=== PATIENT | female | born 1985 | race American Indian/Alaskan Native ===

== ENCOUNTER 2017-11-02 11:52 | Emergency (ER) | payer MEDICAID ==
[2017-11-02] MEDS ORDERED: ZOFRAN IV ONE (12:29)
[2017-11-02] MEDS ORDERED: NACL 0.9% 1000 ML 1,000 ML IV ONE (12:29)
[2017-11-02] MEDS ORDERED: MORPHINE IV ONE (12:29)
--- NOTE | 2017-11-02 12:33 | Emergency Department Report ---
ED Abdominal Pain HPI - General Chief Complaint: Abdominal Pain Stated Complaint: ABD PAIN/BACK PAIN Time Seen by Provider: 11/02/17 12:25 Source: patient Mode of arrival: Ambulatory Limitations: No Limitations - History of Present Illness Initial Comments: Patient is 31 years old female brought by EMS for evaluation ONSET OF RIGHT FLANK PAIN THAT RADIATED DOWN TO HER GROIN. PATIENT STATED THAT PAIN STARTED AROUND 2:00 THIS MORNING ASSOCIATED WITH NAUSEA AND VOMITING. Patient denied any fever. She stated that she's been having painful urination also for the last 2-3 days. MD Complaint: flank pain -: Sudden Location: R flank Radiation: none Migration to: no migration Severity: moderate Quality: sharp Consistency: constant Associated Symptoms: nausea, vomiting, diarrhea. denies: constipation, dysuria , hematemesis, hematochezia, melena, hematuria, anorexia - Related Data Allergies Allergy/AdvReac Type Severity Reaction Status Date / Time meperidine [From Demerol] Allergy Swelling Verified 11/02/17 12:13 tomato Allergy Swelling Verified 11/02/17 12:13 ED Review of Systems ROS: Stated complaint: ABD PAIN/BACK PAIN Other details as noted in HPI Comment: All other systems reviewed and negative Constitutional: denies: chills, fever Respiratory: denies: orthopnea, shortness of breath, SOB with exertion, SOB at rest Cardiovascular: denies: chest pain, palpitations Gastrointestinal: abdominal pain, nausea, vomiting. denies: diarrhea, constipation, hematemesis, melena, hematochezia Genitourinary: urgency, dysuria, frequency. 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 Absent: tenderness, meningismus, lymphadenopathy, thyromegaly - Respiratory Respiratory exam: Present: normal lung sounds bilaterally. Absent: respiratory distress, wheezes, rales, rhonchi, stridor, chest wall tenderness, accessory muscle use, decreased breath sounds, prolonged expiratory - Cardiovascular Cardiovascular Exam: Present: regular rate, normal rhythm, normal heart sounds - GI/Abdominal GI/Abdominal exam: Present: soft, normal bowel sounds. Absent: distended, tenderness, guarding, rebound, rigid, organomegaly, mass, bruit, pulsatile mass , hernia - Extremities Exam Extremities exam: Present: normal inspection, full ROM, normal capillary refill - Back Exam Back exam: Present: normal inspection, full ROM. Absent: tenderness, CVA tenderness (R), CVA tenderness (L), muscle spasm, paraspinal tenderness - Neurological Exam Neurological exam: Present: alert, oriented X3, CN II-XII intact, normal gait - Skin Skin exam: Present: warm, intact, normal color ED Course Vital Signs 11/02/17 11/02/17 11/02/17 12:14 12:38 12:48 Temperature 97.9 F 98.6 F Pulse Rate 75 69 Respiratory 20 18 18 Rate Blood Pressure 157/93 Blood Pressure 147/78 [Right] O2 Sat by Pulse 100 100 Oximetry ED Medical Decision Making - Lab Data Result diagrams: 11/02/17 12:36 11/02/17 12:42 - Radiology Data Radiology results: report reviewed Referring Physician: LILIANA MONROE Patient Name: MONICA MCDONALD Date of : 1985 Sex: Female Report Date: 2017-11-02 Report Status: Finalized Findings [facility] [address] [place] [address] Cat Scan Report Signed Patient: MONICA MCDONALD MR#: [id number] : 1985 Acct:[id number] Age/Sex: 31 / F ADM Date: 11/02/17 Loc: ED Attending Dr: Ordering Physician: LILIANA MONROE Date of Service: 11/02/17 Procedure(s): CT abdomen pelvis w con Accession Number(s): [id number] cc: LILIANA MONROE CT ABDOMEN PELVIS WITH CONTRAST: HISTORY: abdominal pain. COMPARISON: none. TECHNIQUE: Helical CT in 1.25mm intervals following IV contrast. Sagittal and coronal reconstructions. FINDINGS: Lung bases: Normal. Liver: Normal. Biliary system: Normal. Pancreas: Normal. Spleen: Normal. Kidneys/ureters/bladder: Both kidneys are normal size, contour and position. There appear to be 3 or 4 calyceal stones in the right kidney measuring up to 2 mm. Perhaps 1 calyceal stone in the mid left kidney measuring 2 mm. No hydronephrosis, cystic disease or mass. Normal ureters and bladder. Adrenal glands: Normal. Aorta: Normal. Intestines: Within normal limits given no oral contrast was administered. Appendix: Normal. Pelvic viscera: Normal. Ascites: None. Adenopathy: None. Musculoskeletal: Normal. IMPRESSION: Bilateral nephrolithiasis, nonobstructing. No acute inflammatory process is appreciated. Transcribed By: TTR Dictated By: ABDIRIZAK MASON JR, MD Electronically Authenticated By: ABDIRIZAK MASON JR, MD Signed Date/Time: 11/02/171457 DD/ 50 TD/TT: 11/02/171457 - Medical Decision Making Patient stated that she is feeling much better. Her pain is completely resolved. I informed her about her CT abdomen and pelvis and the need to follow -up with his urologist. I will give her Dr. Ross to follow-up with. Critical care attestation.: If time is entered above; I have spent that time in minutes in the direct care of this critically ill patient, excluding procedure time. ED Disposition Clinical Impression: Bilateral kidney stones, Abdominal pain Disposition: DC-01 TO HOME OR SELFCARE Is pt being admited?: No Condition: Stable Instructions: Abdominal Pain (ED), Kidney Stones (ED) Referrals: FRANSISCO ROSS MD [Staff Physician] - 3-5 Days
[2017-11-02 12:40] VITALS: BP 147/78
[2017-11-02 12:52] LABS: Bilirubin,Urine NEG (Negative); Blood,Urine NEG (Negative); Color,Urine Yellow (Yellow); Mucus,Urine FEW /HPF; Urobilinogen,Urine < 2.0 mg/dL (<2.0)
[2017-11-02 13:03] LABS: Basophils % (Auto) 0.2 % (0.0-1.8); Hematocrit 38.8 % (30.3-42.9); Hemoglobin 12.5 gm/dl (10.1-14.3); Lymphocytes # (Auto) 1.5 K/mm3 (1.2-5.4); Lymphocytes % (Auto) 9.2 % (13.4-35.0); Mean Corpuscular HGB Conc 32 % (30-34); Mean Corpuscular Hemoglobin 27 pg (28-32); Mean Corpuscular Volume 84 fl (79-97); Monocytes # (Auto) 0.6 K/mm3 (0.0-0.8); Monocytes % (Auto) 3.4 % (0.0-7.3); Platelet Count 331 K/mm3 (140-440); Red Blood Count 4.64 M/mm3 (3.65-5.03); Red Cell Distribution Width 14.4 % (13.2-15.2)
[2017-11-02 13:11] LABS: Alanine Aminotransferase 14 units/L (7-56); Albumin 4.1 g/dL (3.9-5); BUN/Creatinine Ratio 15; Blood Urea Nitrogen 9 mg/dL (7-17); Hemolysis Index 40
[2017-11-02] MEDS ORDERED: ROCEPHIN/NS 1 GM/50 ML 1 GM/50 ML BAG IV ONE (13:14)
[2017-11-02] MEDS ORDERED: REGLAN IV ONE (13:14)
[2017-11-02] MEDS ORDERED: REGLAN ONE (13:15)
[2017-11-02] MEDS ORDERED: SUBLIMAZE ONE (13:33)
[2017-11-02] MEDS ORDERED: cefTRIAXone 1 GM in NACL 0.9% 20 ML IV ONE (14:00)
--- NOTE | 2017-11-02 15:07 | Cat Scan Report ---
CT ABDOMEN PELVIS WITH CONTRAST: HISTORY: abdominal pain. COMPARISON: none. TECHNIQUE: Helical CT in 1.25mm intervals following IV contrast. Sagittal and coronal reconstructions. FINDINGS: Lung bases: Normal. Liver: Normal. Biliary system: Normal. Pancreas: Normal. Spleen: Normal. Kidneys/ureters/bladder: Both kidneys are normal size, contour and position. There appear to be 3 or 4 calyceal stones in the right kidney measuring up to 2 mm. Perhaps 1 calyceal stone in the mid left kidney measuring 2 mm. No hydronephrosis, cystic disease or mass. Normal ureters and bladder. Adrenal glands: Normal. Aorta: Normal. Intestines: Within normal limits given no oral contrast was administered. Appendix: Normal. Pelvic viscera: Normal. Ascites: None. Adenopathy: None. Musculoskeletal: Normal. IMPRESSION: Bilateral nephrolithiasis, nonobstructing. No acute inflammatory process is appreciated.
== END 2017-11-02 15:49 | disposition home or self-care (01) ==
LOC: ED 11:52
DX: N20.0 Calculus of kidney (principal); J45.909 Unspecified asthma, uncomplicated; F17.200 Nicotine dependence, unspecified, uncomplicated; Z91.018 Allergy to other foods; Z88.8 Allergy status to other drugs, medicaments and biological substances
CPT/HCPCS: 36415; 74177; 80053; 81001; 83690; 84703; 85025; 87040; 96361; 96374; 96375; 99284; J0696; J2270; J2405; J2765; J3010; J7030; Q9967

== ENCOUNTER 2018-08-18 05:43 | Emergency (ER) | payer MEDICAID ==
[2018-08-18] MEDS ORDERED: NACL 0.9% 1000 ML 1,000 ML IV ONE ×2 (05:50→08:52)
[2018-08-18] MEDS ORDERED: ZOFRAN IV ONE (05:59)
[2018-08-18] MEDS ORDERED: TORADOL IV ONE (06:09)
[2018-08-18 06:20] LABS: Hematocrit 39.6 % (30.3-42.9); Hemoglobin 12.5 gm/dl (10.1-14.3); Mean Corpuscular HGB Conc 32 % (30-34); Mean Corpuscular Volume 83 fl (79-97); Platelet Count 357 K/mm3 (140-440); Red Blood Count 4.78 M/mm3 (3.65-5.03); Red Cell Distribution Width 14.2 % (13.2-15.2)
--- NOTE | 2018-08-18 06:25 | Emergency Department Report ---
ED Abdominal Pain HPI - General Chief Complaint: Abdominal Pain Stated Complaint: ABD PAIN/EMESIS Time Seen by Provider: 08/18/18 06:19 Source: patient Mode of arrival: Stretcher Limitations: No Limitations - History of Present Illness Initial Comments: Patient is a 32-year-old female that presents emergency room with complaints of lower abdominal pain and flank pain. Patient states that her abdominal prior pain started suprapubic and radiates to her right flank. Patient states she has a history of kidney stones. Patient states this pain feels like another kidney stone. Patient also complaining of nausea and vomiting. Patient states nausea and vomiting is due to her pain and happens every time she has a kidney stone. Patient states the pain is a 10 out of 10. Patient describes the pain as a stabbing pain. Patient denies dysuria. Patient denies fever and chills. MD Complaint: abdominal pain -: Sudden Location: suprapubic Radiation: R flank Migration to: no migration Severity: severe Severity scale (0 -10): 9 Quality: stabbing Consistency: constant Improves With: rest Worsens With: movement Associated Symptoms: nausea, vomiting, dysuria. denies: diarrhea, fever, chills, constipation, hematemesis, hematochezia, melena, hematuria, anorexia, syncope Treatments Prior to Arrival: NSAIDs - Related Data LMP (females 10-50): last week Previous Rx's Medication Instructions Recorded Last Taken Type Ciprofloxacin HCl [Ciprofloxacin 500 mg PO Q12H 10 Days #20 tab 08/18/18 Unknown Rx TAB] Ondansetron [Zofran ODT TAB] 4 mg PO Q8HR PRN #14 tab.rapdis 08/18/18 Unknown Rx Tamsulosin [Flomax] 0.4 mg PO QDAY #14 cap 08/18/18 Unknown Rx oxyCODONE /ACETAMINOPHEN [Percocet 1 tab PO Q6HR PRN #10 tablet 08/18/18 Unknown Rx 5/325 mg] Allergies Allergy/AdvReac Type Severity Reaction Status Date / Time meperidine [From Demerol] Allergy Swelling Verified 11/02/17 12:13 tomato Allergy Swelling Verified 11/02/17 12:13 ED Review of Systems ROS: Stated complaint: ABD PAIN/EMESIS Other details as noted in HPI Constitutional: denies: chills, fever Eyes: denies: eye pain, eye discharge, vision change ENT: denies: ear pain, throat pain Respiratory: denies: cough, shortness of breath, wheezing Cardiovascular: denies: chest pain, palpitations Endocrine: no symptoms reported Gastrointestinal: abdominal pain, nausea, vomiting. 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 - Surgical History Past Surgical History?: Yes Additional Surgical History: kidney stone surgery - Family History Family history: no significant - Social History Smoking Status: Current Every Day Smoker Substance Use Type: None - Medications Home Medications: Home Medications Medication Instructions Recorded Confirmed Last Taken Type Ciprofloxacin HCl [Ciprofloxacin 500 mg PO Q12H 10 Days #20 tab 08/18/18 Unknown Rx TAB] Ondansetron [Zofran ODT TAB] 4 mg PO Q8HR PRN #14 tab.rapdis 08/18/18 Unknown Rx Tamsulosin [Flomax] 0.4 mg PO QDAY #14 cap 08/18/18 Unknown Rx oxyCODONE /ACETAMINOPHEN [Percocet 1 tab PO Q6HR PRN #10 tablet 08/18/18 Unknown Rx 5/325 mg] ED Physical Exam - General Limitations: No Limitations, Other General appearance: alert, in no apparent distress - Head Head exam: Present: atraumatic, normocephalic - Eye Eye exam: Present: normal appearance - ENT ENT exam: Present: mucous membranes moist - Neck Neck exam: Present: normal inspection - Respiratory Respiratory exam: Present: normal lung sounds bilaterally. Absent: respiratory distress - Cardiovascular Cardiovascular Exam: Present: regular rate, normal rhythm. Absent: systolic murmur, diastolic murmur, rubs, gallop - GI/Abdominal GI/Abdominal exam: Present: soft, tenderness, normal bowel sounds - Extremities Exam Extremities exam: Present: normal inspection - Back Exam Back exam: Present: normal inspection - Neurological Exam Neurological exam: Present: alert, oriented X3 - Psychiatric Psychiatric exam: Present: normal affect, normal mood - Skin Skin exam: Present: warm, dry, intact, normal color. Absent: rash ED Course Vital Signs 08/18/18 08/18/18 08/18/18 05:51 05:57 06:00 Temperature 98.5 F Pulse Rate 65 65 65 Respiratory 16 14 9 L Rate Blood Pressure 156/75 148/85 O2 Sat by Pulse 100 100 99 Oximetry 08/18/18 08/18/18 08/18/18 06:15 06:30 06:45 Temperature Pulse Rate 67 106 H 63 Respiratory 11 L 11 L 12 Rate Blood Pressure 147/83 157/112 149/84 O2 Sat by Pulse 96 99 100 Oximetry 08/18/18 08/18/18 08/18/18 06:49 07:01 07:21 Temperature Pulse Rate 63 92 H Respiratory 16 12 18 Rate Blood Pressure 147/74 147/74 O2 Sat by Pulse 100 99 67 L Oximetry 08/18/18 08/18/18 08/18/18 07:31 07:45 08:00 Temperature Pulse Rate 61 68 77 Respiratory 13 25 H 23 Rate Blood Pressure 147/74 169/88 152/71 O2 Sat by Pulse 99 100 Oximetry 08/18/18 08/18/18 08/18/18 08:15 08:30 08:45 Temperature Pulse Rate 71 75 67 Respiratory 17 18 17 Rate Blood Pressure 152/71 126/64 124/54 O2 Sat by Pulse Oximetry 08/18/18 08/18/18 08/18/18 09:05 09:15 09:31 Temperature Pulse Rate 108 H 66 62 Respiratory 17 19 19 Rate Blood Pressure 124/54 134/53 136/55 O2 Sat by Pulse 97 96 98 Oximetry 08/18/18 08/18/18 08/18/18 09:45 10:00 10:15 Temperature Pulse Rate 70 91 H 70 Respiratory 14 13 12 Rate Blood Pressure 126/66 129/78 148/76 O2 Sat by Pulse 98 96 98 Oximetry 08/18/18 08/18/18 08/18/18 10:31 10:45 11:01 Temperature Pulse Rate 68 65 105 H Respiratory 22 9 L 15 Rate Blood Pressure 142/67 144/77 144/77 O2 Sat by Pulse 100 100 100 Oximetry 08/18/18 11:15 Temperature Pulse Rate 111 H Respiratory 18 Rate Blood Pressure 144/77 O2 Sat by Pulse 99 Oximetry - Reevaluation(s) Reevaluation #1: She states her pain is better. Patient states her nausea has resolved. Patient has not vomited since her arrival. Discussed all results with patient. Discussed plan of care with patient. 08/18/18 08:52 She states her pain is gone. Patient tolerating by mouth intake. Patient denies vomiting and nausea. Patient will be discharged home with pain medications as well as antibiotics and Flomax and Zofran. Patient agrees with plan of care and discharged. Patient given discharge instructions. Patient given return to ER instruction. Patient given medication instructions. Patient and all results. Patient voiced understanding of all instructions. 08/18/18 10:34 ED Medical Decision Making - Lab Data Result diagrams: 08/18/18 09:48 08/18/18 06:00 - Radiology Data Radiology results: report reviewed FINAL REPORT EXAM: CT ABDOMEN PELVIS WO CON HISTORY: flank pain. abd pain TECHNIQUE: CT images obtained through the Abdomen and Pelvis without contrast. Transaxial,coronal and sagittal reformats are provided. PRIORS: 11/02/2017 FINDINGS: Imaged intrathoracic contents are unremarkable. Kidneys are normal in size, axis and position. No hydroureteronephrosis. There are nonobstructive 3 millimeter stones in both collecting systems. No stones are seen within the urinary bladder. Anteverted uterus. No significant free fluid in the pelvis. The liver, gallbladder, pancreas, spleen, and adrenal glands demonstrate a normal noncontrast appearance. Hollow enteric organs are normal in course and caliber. Appendix is normal. No intra-abdominal free air/fluid or lymphadenopathy. Aorta is normal in course and caliber. Superficial soft tissues are unremarkable. No acute or aggressive appearing skeletal findings. IMPRESSION: No acute findings in the abdomen or pelvis. Nonobstructive nephrolithiasis in both collecting systems measures up to 3 millimeters. - Medical Decision Making Patient is a 32-year-old female with abscess emergency room with lower abdominal pain and flank pain. Patient found to have kidney stones and UTI. Patient. Patient also found to have elevated WBC. WC elevation most like secondary to pain and stress reaction. Patient's white blood cells improved. Patient will be given antibiotics, pain medications and nausea medications as well as Flomax. Patient given discharge instruction. Patient given med instructions. She is stable for discharge. CT abdomen negative except for kidney stones. No hydronephrosis on CT. - Differential Diagnosis kidney stone. Abdominal pain. UTI. Critical care attestation.: If time is entered above; I have spent that time in minutes in the direct care of this critically ill patient, excluding procedure time. ED Disposition Clinical Impression: Kidney stone, Flank pain Abdominal pain Qualifiers: Abdominal location: lower abdomen, unspecified Qualified Code(s): R10.30 - Lower abdominal pain, unspecified UTI (urinary tract infection) Qualifiers: Urinary tract infection type: acute cystitis Hematuria presence: with hematuria Qualified Code(s): N30.01 - Acute cystitis with hematuria Disposition: TO HOME OR SELFCARE Is pt being admited?: No Does the pt Need Aspirin: No Condition: Stable Instructions: Kidney Stones (ED), Urinary Tract Infection in Women (ED), Renal Colic (ED), How to Strain Your Urine (ED), Dysuria (ED), Abdominal Pain (ED) Additional Instructions: Patient to follow up with primary care in 2-3 days. Patient to follow-up with urologist in 2-3 days. Patient to return to your condition worsens. Patient to take Tylenol for when necessary for pain. Patient take meds as directed. Patient increase water. Patient strained her urine. Prescriptions: Ciprofloxacin HCl [Ciprofloxacin TAB] 500 mg PO Q12H 10 Days #20 tab Ondansetron [Zofran ODT TAB] 4 mg PO Q8HR PRN #14 tab.rapdis PRN Reason: Nausea And Vomiting oxyCODONE /ACETAMINOPHEN [Percocet 5/325 mg] 1 tab PO Q6HR PRN #10 tablet PRN Reason: Pain Tamsulosin [Flomax] 0.4 mg PO QDAY #14 cap Referrals: SRUTHI ALLEN MD [Primary Care Provider] - 2-3 Days JULIO MCKEON MD [Staff Physician] - 2-3 Days Forms: Work/School Release Form(ED) Time of Disposition: 10:33
[2018-08-18 06:32] LABS: Alanine Aminotransferase 12 units/L (7-56); Albumin 4.5 g/dL (3.9-5); BUN/Creatinine Ratio 14; Blood Urea Nitrogen 11 mg/dL (7-17); Calcium 9.6 mg/dL (8.4-10.2); Hemolysis Index 0
[2018-08-18 07:17] LABS: Anisocytosis 1+; Band Neutrophils # (Manual) 2.8 K/mm3; Basophils % (Manual) 0 % (0.0-1.8); Eosinophils % (Manual) 0 % (0.0-4.3); Hypochromasia 1+; Total Cells Counted 100
[2018-08-18] MEDS ORDERED: DILAUDID IV ONE (07:25)
--- NOTE | 2018-08-18 07:45 | Cat Scan Report ---
FINAL REPORT EXAM: CT ABDOMEN PELVIS WO CON HISTORY: flank pain. abd pain TECHNIQUE: CT images obtained through the Abdomen and Pelvis without contrast. Transaxial,coronal an d sagittal reformats are provided. PRIORS: 11/02/2017 FINDINGS: Imaged intrathoracic contents are unremarkable. Kidneys are normal in size, axis and position. No hydroureteronephrosis. There are nonobstructive 3 m illimeter stones in both collecting systems. No stones are seen within the urinary bladder. Anteverte d uterus. No significant free fluid in the pelvis. The liver, gallbladder, pancreas, spleen, and adrenal glands demonstrate a normal noncontrast appeara nce. Hollow enteric organs are normal in course and caliber. Appendix is normal. No intra-abdominal free air/fluid or lymphadenopathy. Aorta is normal in course and caliber. Superficial soft tissues are unremarkable. No acute or aggressive appearing skeletal findings. IMPRESSION: No acute findings in the abdomen or pelvis. Nonobstructive nephrolithiasis in both collecting systems measures up to 3 millimeters.
[2018-08-18 08:29] LABS: Bilirubin,Urine NEG (Negative); Blood,Urine NEG (Negative); Color,Urine Yellow (Yellow); Mucus,Urine 3+ /HPF; Urobilinogen,Urine < 2.0 mg/dL (<2.0)
[2018-08-18] MEDS ORDERED: ROCEPHIN/NS 1 GM/50 ML 1 GM/50 ML BAG IV ONE (08:51)
[2018-08-18 10:05] LABS: Hemoglobin 11.6 gm/dl (10.1-14.3); Mean Corpuscular HGB Conc 31 % (30-34); Mean Corpuscular Volume 85 fl (79-97); Platelet Count 279 K/mm3 (140-440); Red Blood Count 4.37 M/mm3 (3.65-5.03); Red Cell Distribution Width 14.7 % (13.2-15.2)
[2018-08-18 11:22] VITALS: BP 144/77
== END 2018-08-18 11:23 | disposition home or self-care (01) ==
LOC: ED 05:43
DX: N39.0 Urinary tract infection, site not specified (principal); N20.0 Calculus of kidney; J45.909 Unspecified asthma, uncomplicated; F17.200 Nicotine dependence, unspecified, uncomplicated; Z88.5 Allergy status to narcotic agent; Z91.018 Allergy to other foods
CPT/HCPCS: 36415; 74176; 80053; 81001; 82140; 84703; 85007; 85025; 85027; 96361; 96365; 96375; 99284; J0696; J1170; J1885; J2405; J7030

== ENCOUNTER 2019-09-09 10:06 | Emergency (ER) | payer MEDICAID ==
[2019-09-09] MEDS ORDERED: KETOROLAC 30 MG/1 ML INJ IV ONE (10:52)
[2019-09-09] MEDS ORDERED: SODIUM CHLORIDE 0.9% 1000 ML 1,000 ML IV ONE ×2 (10:52→13:17)
[2019-09-09] MEDS ORDERED: ONDANSETRON 4 MG/2 ML INJ IV ONE ×2 (10:52→13:13)
[2019-09-09] MEDS ORDERED: MORPHINE 2 MG/1 ML INJ IV ONE (10:52)
--- NOTE | 2019-09-09 10:54 | Emergency Department Report ---
ED Abdominal Pain HPI - General Chief Complaint: Abdominal Pain Stated Complaint: ABD PAIN Time Seen by Provider: 09/09/19 10:39 Source: patient Mode of arrival: Wheelchair Limitations: No Limitations - History of Present Illness Initial Comments: This is a 33-year-old female with a history of kidney stones in the past year who presents the ED complaining of left-sided flank to abdominal pain for the past 2 days. Patient states this abdominal pain is constant not resolving radiating to her lower left pelvic region. Patient does states that she had some pain with urination. She denies fever/chills/nausea vomiting. MD Complaint: abdominal pain, flank pain - Related Data Previous Rx's Medication Instructions Recorded Last Taken Type Ciprofloxacin HCl [Ciprofloxacin 500 mg PO Q12H 10 Days #20 tab 08/18/18 Unknown Rx TAB] Ondansetron [Zofran ODT TAB] 4 mg PO Q8HR PRN #14 tab.rapdis 09/09/19 Unknown Rx Tamsulosin [Flomax] 0.4 mg PO QDAY #14 cap 09/09/19 Unknown Rx oxyCODONE /ACETAMINOPHEN [Percocet 1 tab PO Q6HR PRN #10 tablet 09/09/19 Unknown Rx 5/325 mg] Allergies Allergy/AdvReac Type Severity Reaction Status Date / Time meperidine [From Demerol] Allergy Swelling Verified 11/02/17 12:13 tomato Allergy Swelling Verified 11/02/17 12:13 ED Review of Systems ROS: Stated complaint: ABD PAIN Other details as noted in HPI Comment: All other systems reviewed and negative ED Past Medical Hx - Past Medical History Previous Medical History?: Yes Hx Kidney Stones: Yes Hx Asthma: Yes 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 - Surgical History Past Surgical History?: Yes Additional Surgical History: kidney stone surgery - Social History Smoking Status: Current Some Day Smoker Substance Use Type: None - Medications Home Medications: Home Medications Medication Instructions Recorded Confirmed Last Taken Type Ciprofloxacin HCl [Ciprofloxacin 500 mg PO Q12H 10 Days #20 tab 08/18/18 Unknown Rx TAB] Ondansetron [Zofran ODT TAB] 4 mg PO Q8HR PRN #14 tab.rapdis 09/09/19 Unknown Rx Tamsulosin [Flomax] 0.4 mg PO QDAY #14 cap 09/09/19 Unknown Rx oxyCODONE /ACETAMINOPHEN [Percocet 1 tab PO Q6HR PRN #10 tablet 09/09/19 Unknown Rx 5/325 mg] ED Physical Exam - General Limitations: No Limitations General appearance: alert, in no apparent distress - Head Head exam: Present: atraumatic, normocephalic - Eye Eye exam: Present: normal appearance - ENT ENT exam: Present: mucous membranes moist - Neck Neck exam: Present: normal inspection - Respiratory Respiratory exam: Present: normal lung sounds bilaterally. Absent: respiratory distress - Cardiovascular Cardiovascular Exam: Present: regular rate, normal rhythm. Absent: systolic murmur, diastolic murmur, rubs, gallop - GI/Abdominal GI/Abdominal exam: Present: soft, normal bowel sounds - Extremities Exam Extremities exam: Present: normal inspection - Back Exam Back exam: Present: normal inspection - Neurological Exam Neurological exam: Present: alert, oriented X3 - Psychiatric Psychiatric exam: Present: normal affect, normal mood - Skin Skin exam: Present: warm, dry, intact, normal color. Absent: rash ED Course Vital Signs 09/09/19 09/09/19 09/09/19 10:13 11:06 11:07 Temperature 98.5 F Pulse Rate 90 Respiratory 18 20 20 Rate Blood Pressure 154/96 Blood Pressure [Right] O2 Sat by Pulse 100 Oximetry 09/09/19 09/09/19 09/09/19 11:36 11:37 14:55 Temperature Pulse Rate 88 Respiratory 14 14 14 Rate Blood Pressure Blood Pressure 145/67 [Right] O2 Sat by Pulse 100 Oximetry ED Medical Decision Making - Lab Data Result diagrams: 09/09/19 11:06 09/09/19 11:06 Laboratory Last Values WBC 9.1 K/mm3 (4.5-11.0) 09/09/19 11:06 RBC 4.36 M/mm3 (3.65-5.03) 09/09/19 11:06 Hgb 11.8 gm/dl (10.1-14.3) 09/09/19 11:06 Hct 36.6 % (30.3-42.9) 09/09/19 11:06 MCV 84 fl (79-97) 09/09/19 11:06 MCH 27 pg (28-32) L 09/09/19 11:06 MCHC 32 % (30-34) 09/09/19 11:06 RDW 14.2 % (13.2-15.2) 09/09/19 11:06 Plt Count 297 K/mm3 (140-440) 09/09/19 11:06 Lymph % (Auto) 28.3 % (13.4-35.0) 09/09/19 11:06 Snyder % (Auto) 8.5 % (0.0-7.3) H 09/09/19 11:06 Eos % (Auto) 1.6 % (0.0-4.3) 09/09/19 11:06 Baso % (Auto) 0.4 % (0.0-1.8) 09/09/19 11:06 Lymph # 2.6 K/mm3 (1.2-5.4) 09/09/19 11:06 Snyder # 0.8 K/mm3 (0.0-0.8) 09/09/19 11:06 Eos # 0.1 K/mm3 (0.0-0.4) 09/09/19 11:06 Baso # 0.0 K/mm3 (0.0-0.1) 09/09/19 11:06 Seg Neutrophils % 61.2 % (40.0-70.0) 09/09/19 11:06 Seg Neutrophils # 5.6 K/mm3 (1.8-7.7) 09/09/19 11:06 Sodium 142 mmol/L (137-145) 09/09/19 11:06 Potassium 4.4 mmol/L (3.6-5.0) 09/09/19 11:06 Chloride 107.5 mmol/L (98-107) H 09/09/19 11:06 Carbon Dioxide 22 mmol/L (22-30) 09/09/19 11:06 Anion Gap 17 mmol/L 09/09/19 11:06 BUN 6 mg/dL (7-17) L 09/09/19 11:06 Creatinine 0.7 mg/dL (0.7-1.2) 09/09/19 11:06 Estimated GFR > 60 ml/min 09/09/19 11:06 BUN/Creatinine Ratio 9 % 09/09/19 11:06 Glucose 108 mg/dL (65-100) H 09/09/19 11:06 Calcium 9.2 mg/dL (8.4-10.2) 09/09/19 11:06 Total Bilirubin 0.60 mg/dL (0.1-1.2) 09/09/19 11:06 AST 16 units/L (5-40) 09/09/19 11:06 ALT 13 units/L (7-56) 09/09/19 11:06 Alkaline Phosphatase 79 units/L (35-129) 09/09/19 11:06 Total Protein 7.9 g/dL (6.3-8.2) 09/09/19 11:06 Albumin 4.1 g/dL (3.9-5) 09/09/19 11:06 Albumin/Globulin Ratio 1.1 % 09/09/19 11:06 HCG, Qual Negative (Negative) 09/09/19 11:06 Urine Color Yellow (Yellow) 09/09/19 10:45 Urine Turbidity Cloudy (Clear) 09/09/19 10:45 Urine pH 6.0 (5.0-7.0) 09/09/19 10:45 Ur Specific [place] 1.019 (1.003-1.030) 09/09/19 10:45 Urine Protein 30 mg/dl mg/dL (Negative) 09/09/19 10:45 Urine Glucose (UA) Neg mg/dL (Negative) 09/09/19 10:45 Urine Ketones Tr mg/dL (Negative) 09/09/19 10:45 Urine Blood Lg (Negative) 09/09/19 10:45 Urine Nitrite Neg (Negative) 09/09/19 10:45 Urine Bilirubin Neg (Negative) 09/09/19 10:45 Urine Urobilinogen < 2.0 mg/dL (<2.0) 09/09/19 10:45 Ur Leukocyte Esterase Neg (Negative) 09/09/19 10:45 Urine WBC (Auto) 3.0 /HPF (0.0-6.0) 09/09/19 10:45 Urine RBC (Auto) > 182.0 /HPF (0.0-6.0) 09/09/19 10:45 U Epithel Cells (Auto) 9.0 /HPF (0-13.0) 09/09/19 10:45 Urine Mucus 2+ /HPF 09/09/19 10:45 - Radiology Data Radiology results: report reviewed, image reviewed CT ABDOMEN AND PELVIS WITHOUT CONTRAST INDICATION / CLINICAL INFORMATION: pain. TECHNIQUE: Axial CT images were obtained through the abdomen and pelvis without IV contrast. All CT scans at this location are performed using CT dose reduction for ALARA by means of automated exposure control. COMPARISON: 08/18/2018 FINDINGS: LOWER CHEST: No significant abnormality. LIVER: No significant abnormality. GALLBLADDER: No significant abnormality. BILE DUCTS: No significant abnormality. PANCREAS: No significant abnormality. SPLEEN: No significant abnormality. ADRENALS: No significant abnormality. RIGHT KIDNEY and URETER: Multiple punctate calcifications LEFT KIDNEY and URETER: Multiple punctate calcifications noted within the collecting system. Minimum dilatation of the left collecting system is present. A 0.37 cm calculus is present in the distal left ureter STOMACH and SMALL BOWEL: No significant abnormality. COLON: No significant abnormality. APPENDIX: No significant abnormality. PERITONEUM: No free fluid. No free air. No fluid collection. LYMPH NODES: No significant adenopathy. AORTA and ARTERIES: No significant abnormality. IVC and VEINS: No significant abnormality. URINARY BLADDER: No significant abnormality. REPRODUCTIVE ORGANS: No significant abnormality. Prominent left ovary is present. ADDITIONAL FINDINGS: None. SKELETAL SYSTEM: No significant abnormality. IMPRESSION: 1. Obstructing calculus distal left ureter with minimum hydronephrosis present. 2. Bilateral nephrolithiasis Signer Name: Koko Jacinto MD Signed: 09/09/2019 12:30 PM Workstation Name: [id number] Transcribed By: WG Dictated By: Koko Jacinto MD Electronically Authenticated By: Koko Jacinto MD Signed Date/Time: 09/09/19 1230 Critical care attestation.: If time is entered above; I have spent that time in minutes in the direct care of this critically ill patient, excluding procedure time. ED Disposition Clinical Impression: Ureteral stone with hydronephrosis Disposition: DC-01 TO HOME OR SELFCARE Is pt being admited?: No Does the pt Need Aspirin: No Condition: Stable Instructions: Renal Colic (ED), Abdominal Pain (ED) Additional Instructions: Make sure to follow up with the primary care physician as discussed. Follow-up with Dr. Ross on Wednesday Take all your medications as you've been prescribed. If you have any worsening symptoms or develop new symptoms please return to ED immediately. Prescriptions: Tamsulosin [Flomax] 0.4 mg PO QDAY #14 cap oxyCODONE /ACETAMINOPHEN [Percocet 5/325 mg] 1 tab PO Q6HR PRN #10 tablet PRN Reason: Pain Ondansetron [Zofran ODT TAB] 4 mg PO Q8HR PRN #14 tab.rapdis PRN Reason: Nausea And Vomiting Referrals: PRIMARY CARE, [Primary Care Provider] - 3-5 Days FRANSISCO ROSS MD [Staff Physician] - 3-5 Days Forms: Accompanied Note, Work/School Release Form(ED) Time of Disposition: 13:23
[2019-09-09 11:04] LABS: Bilirubin,Urine NEG (Negative); Blood,Urine LG (Negative); Color,Urine Yellow (Yellow); Mucus,Urine 2+ /HPF; Urobilinogen,Urine < 2.0 mg/dL (<2.0)
[2019-09-09 11:06] LABS: RBC,Urine > 182.0 /HPF (0.0-6.0)
[2019-09-09 11:23] LABS: Basophils % (Auto) 0.4 % (0.0-1.8); Eosinophils # (Auto) 0.1 K/mm3 (0.0-0.4); Eosinophils % (Auto) 1.6 % (0.0-4.3); Hematocrit 36.6 % (30.3-42.9); Hemoglobin 11.8 gm/dl (10.1-14.3); Lymphocytes # (Auto) 2.6 K/mm3 (1.2-5.4); Lymphocytes % (Auto) 28.3 % (13.4-35.0); Mean Corpuscular HGB Conc 32 % (30-34); Mean Corpuscular Volume 84 fl (79-97); Monocytes # (Auto) 0.8 K/mm3 (0.0-0.8); Monocytes % (Auto) 8.5 % (0.0-7.3); Platelet Count 297 K/mm3 (140-440); Red Blood Count 4.36 M/mm3 (3.65-5.03); Red Cell Distribution Width 14.2 % (13.2-15.2)
[2019-09-09 11:37] LABS: Alanine Aminotransferase 13 units/L (7-56); Albumin 4.1 g/dL (3.9-5); BUN/Creatinine Ratio 9; Blood Urea Nitrogen 6 mg/dL (7-17); Calcium 9.2 mg/dL (8.4-10.2); Hemolysis Index 0
--- NOTE | 2019-09-09 12:34 | Cat Scan Report ---
CT ABDOMEN AND PELVIS WITHOUT CONTRAST INDICATION / CLINICAL INFORMATION: pain. TECHNIQUE: Axial CT images were obtained through the abdomen and pelvis without IV contrast. All CT scans at [facility] location are performed using CT dose reduction for ALARA by means of automated exposure control. COMPARISON: 08/18/2018 FINDINGS: LOWER CHEST: No significant abnormality. LIVER: No significant abnormality. GALLBLADDER: No significant abnormality. BILE DUCTS: No significant abnormality. PANCREAS: No significant abnormality. SPLEEN: No significant abnormality. ADRENALS: No significant abnormality. RIGHT KIDNEY and URETER: Multiple punctate calcifications LEFT KIDNEY and URETER: Multiple punctate calcifications noted within the collecting system. Minimum dilatation of the left collecting system is present. A 0.37 cm calculus is present in the distal left ureter STOMACH and SMALL BOWEL: No significant abnormality. COLON: No significant abnormality. APPENDIX: No significant abnormality. PERITONEUM: No free fluid. No free air. No fluid collection. LYMPH NODES: No significant adenopathy. AORTA and ARTERIES: No significant abnormality. IVC and VEINS: No significant abnormality. URINARY BLADDER: No significant abnormality. REPRODUCTIVE ORGANS: No significant abnormality. Prominent left ovary is present. ADDITIONAL FINDINGS: None. SKELETAL SYSTEM: No significant abnormality. IMPRESSION: 1. Obstructing calculus distal left ureter with minimum hydronephrosis present. 2. Bilateral nephrolithiasis Signer Name: Koko Jacinto MD Signed: 09/09/2019 12:30 PM Workstation Name: [id number]
[2019-09-09] MEDS ORDERED: HYDROmorphone 1 MG/1 ML INJ IV ONE (13:13)
[2019-09-09] MEDS ORDERED: diphenhydrAMINE 50 MG/ML VIAL IV ONE (14:15)
[2019-09-09] MEDS ORDERED: diphenhydrAMINE 50 MG/ML VIAL ONE (14:18)
[2019-09-09 15:00] VITALS: BP 145/67
== END 2019-09-09 14:55 | disposition home or self-care (01) ==
LOC: ED 10:06
DX: N13.2 Hydronephrosis with renal and ureteral calculous obstruction (principal); J45.909 Unspecified asthma, uncomplicated; F17.200 Nicotine dependence, unspecified, uncomplicated; Z87.442 Personal history of urinary calculi; Z98.890 Other specified postprocedural states; Z91.018 Allergy to other foods; Z88.5 Allergy status to narcotic agent
CPT/HCPCS: 36415; 74176; 80053; 81001; 84703; 85025; 96374; 96375; 99284; J1170; J1200; J1885; J2270; J2405; J7030

== ENCOUNTER 2019-09-13 19:30 | Observation (INO) | payer MEDICAID ==
--- NOTE | 2019-09-13 19:40 | Emergency Department Report ---
ED General Adult HPI - General Stated complaint: KIDNEYSTONES N/V X 5DAYS Time Seen by Provider: 09/13/19 19:39 Source: patient, EMS Mode of arrival: Stretcher Limitations: No Limitations - History of Present Illness Initial comments: Patient is a 33-year-old female that presents emergency room with worsening nausea and vomiting and left flank pain. Patient states she was here a few days back and was diagnosed with a kidney stone. Patient states her left flank pain is a 10 out of 10. Patient states her pain is worsening. Patient states her pain is a stabbing pain. Patient states she has picked up her medication from the pharmacy and is taking them. Patient states she is not held any food down for 6 days. Patient states she not able to hold water down as well. Patient states today she started vomiting bright red blood. -: Sudden Severity scale (0 -10): 10 Quality: stabbing Consistency: constant Improves with: rest Worsens with: movement Associated Symptoms: malaise, nausea/vomiting. denies: confusion, chest pain, cough, diaphoresis, fever/chills, headaches, loss of appetite, rash, seizure, shortness of breath, syncope Treatments Prior to Arrival: other - Related Data Previous Rx's Medication Instructions Recorded Last Taken Type Ondansetron [Zofran ODT TAB] 4 mg PO Q8HR PRN #14 tab.rapdis 09/09/19 Unknown Rx Tamsulosin [Flomax] 0.4 mg PO QDAY #14 cap 09/09/19 Unknown Rx oxyCODONE /ACETAMINOPHEN [Percocet 1 tab PO Q6HR PRN #10 tablet 09/09/19 Unknown Rx 5/325 mg] Allergies Allergy/AdvReac Type Severity Reaction Status Date / Time hydromorphone [From Dilaudid] Allergy Hives Verified 09/13/19 19:56 meperidine [From Demerol] Allergy Swelling Verified 11/02/17 12:13 tomato Allergy Swelling Verified 11/02/17 12:13 ED Review of Systems ROS: Stated complaint: KIDNEYSTONES N/V X 5DAYS Other details as noted in HPI Constitutional: denies: chills, fever Eyes: denies: eye pain, eye discharge, vision change ENT: denies: ear pain, throat pain Respiratory: denies: cough, shortness of breath, wheezing Cardiovascular: denies: chest pain, palpitations Endocrine: no symptoms reported Gastrointestinal: abdominal pain, nausea, vomiting, hematemesis. 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 - Surgical History Past Surgical History?: Yes Additional Surgical History: kidney stone surgery - Family History Family history: no significant - Social History Smoking Status: Current Some Day Smoker Substance Use Type: None - Medications Home Medications: Home Medications Medication Instructions Recorded Confirmed Last Taken Type Ondansetron [Zofran ODT TAB] 4 mg PO Q8HR PRN #14 tab.rapdis 09/09/19 09/13/19 Unknown Rx Tamsulosin [Flomax] 0.4 mg PO QDAY #14 cap 09/09/19 09/13/19 Unknown Rx oxyCODONE /ACETAMINOPHEN [Percocet 1 tab PO Q6HR PRN #10 tablet 09/09/19 09/13/19 Unknown Rx 5/325 mg] ED Physical Exam - General Limitations: No Limitations General appearance: alert, in no apparent distress - Head Head exam: Present: atraumatic, normocephalic - Eye Eye exam: Present: normal appearance - ENT ENT exam: Present: mucous membranes moist - Neck Neck exam: Present: normal inspection - Respiratory Respiratory exam: Present: normal lung sounds bilaterally, chest wall tenderness. Absent: respiratory distress - Cardiovascular Cardiovascular Exam: Present: regular rate, normal rhythm. Absent: systolic murmur, diastolic murmur, rubs, gallop - GI/Abdominal GI/Abdominal exam: Present: soft, tenderness (Generalized tenderness), normal bowel sounds - Extremities Exam Extremities exam: Present: normal inspection - Back Exam Back exam: Present: normal inspection - Neurological Exam Neurological exam: Present: alert, oriented X3 - Psychiatric Psychiatric exam: Present: normal affect, normal mood - Skin Skin exam: Present: warm, dry, intact, normal color. Absent: rash ED Course Vital Signs 09/13/19 09/13/19 09/13/19 19:50 22:04 22:05 Temperature 99 F Pulse Rate 77 87 Respiratory 18 16 16 Rate Blood Pressure 142/95 Blood Pressure 142/95 163/91 [Right] O2 Sat by Pulse 99 98 98 Oximetry - Reevaluation(s) Reevaluation #1: I discussed all results with patient. I discussed plan of care with patient. Patient agrees with plan of care and admission. Patient to be admitted to the hospitalist service. 09/13/19 21:29 - Consultations Consultation #1: Hospitalist consulted for admission. Hospitalist to admit patient. Bridge orders placed. 09/13/19 21:30 Consultation #2: GI consulted, I discussed case with Dr. Lin. Dr. Lin recommends admission, n.p.o. after midnight, Protonix drip. 09/13/19 21:32 ED Medical Decision Making - Lab Data Result diagrams: 09/13/19 19:56 09/13/19 19:56 - Radiology Data Radiology results: report reviewed CT ABDOMEN AND PELVIS WITHOUT CONTRAST INDICATION: Unspecified abdominal and pelvic pain for 4 days. COMPARISON: CT abdomen and pelvis without contrast from 09/09/2019. History of bilateral renal and left ureteral stones. TECHNIQUE: Axial, coronal and sagittal CT imaging of the abdomen and pelvis was performed without contrast. Lack of intravenous contrast limits evaluation of the vascular and solid organs. All CT scans at this location are performed using CT dose reduction for ALARA by means of automated exposure control. FINDINGS: LOWER CHEST: No significant abnormality. LIVER: No significant abnormality. BILIARY: No significant abnormality. PANCREAS: No significant abnormality. SPLEEN: No significant abnormality. ADRENALS: No significant abnormality. KIDNEYS AND URETERS: Nonobstructive bilateral renal stones are unchanged. The previously described left ureteral stone is no longer seen and has likely passed in the interval. No other ureteral sto guille are identified. No additional significant abnormality. GI TRACT: No significant abnormality of the stomach, small bowel or colon. Unremarkable appendix. PERITONEUM: No free fluid. No free air. No fluid collection. LYMPH NODES: No significant adenopathy. VASCULATURE: No significant abnormality. URINARY BLADDER: No significant abnormality. REPRODUCTIVE ORGANS: No significant abnormality. ADDITIONAL FINDINGS: None. SKELETAL SYSTEM: No significant abnormality. IMPRESSION: 1. The left ureteral stone seen on the prior study is no longer visualized and has likely passed. 2. Similar nonobstructive bilateral renal stones. 3. No new acute abnormality of the abdomen or pelvis. - Medical Decision Making Patient is a 33-year-old female who presents emergency room for intractable nausea vomiting, hematemesis, abdominal pain. Patient has been seen previously here for kidney stones and recently diagnosed with a kidney stone with mild hydronephrosis. Patient took her medications as instructed upon discharge from her last ER visit. Patient's nausea vomiting and symptoms continued. Patient had a repeat CAT scan which shows that the hydronephrosis and the kidney stone have resolved. Patient admitted for intractable nausea vomiting and a hematemesis work-up. Patient admitted to the hospitalist service. Prior to admission GI was consulted and recommendations were received. Critical Care Time: Yes Critical care time in (mins) excluding proc time.: 35 Critical care attestation.: If time is entered above; I have spent that time in minutes in the direct care of this critically ill patient, excluding procedure time. Critical Care Time: 35 minutes ED Disposition Clinical Impression: Ureteral stone with hydronephrosis, Chest wall pain, Hypokalemia Abdominal pain Qualifiers: Abdominal location: generalized Qualified Code(s): R10.84 - Generalized abdominal pain Nausea & vomiting Qualifiers: Vomiting type: unspecified Vomiting Intractability: intractable Qualified Code(s): R11.2 - Nausea with vomiting, unspecified Hematemesis Qualifiers: Nausea presence: with nausea Qualified Code(s): K92.0 - Hematemesis Disposition: OP ADMIT IP TO THIS HOSP Is pt being admited?: Yes Does the pt Need Aspirin: No Condition: Critical Time of Disposition: 21:29
[2019-09-13] MEDS ORDERED: HYDROmorphone 1 MG/1 ML INJ IV ONE (19:43)
[2019-09-13] MEDS ORDERED: SODIUM CHLORIDE 0.9% 1000 ML 1,000 ML IV ONE (19:43)
[2019-09-13] MEDS ORDERED: ONDANSETRON 4 MG/2 ML INJ IV ONE (19:43)
[2019-09-13] MEDS ORDERED: KETOROLAC 30 MG/1 ML INJ IV ONE (19:57)
[2019-09-13 20:30] LABS: Basophils % (Auto) 0.3 % (0.0-1.8); Eosinophils # (Auto) 0.1 K/mm3 (0.0-0.4); Eosinophils % (Auto) 0.5 % (0.0-4.3); Hematocrit 42.8 % (30.3-42.9); Hemoglobin 13.5 gm/dl (10.1-14.3); Lymphocytes # (Auto) 2.8 K/mm3 (1.2-5.4); Lymphocytes % (Auto) 20.2 % (13.4-35.0); Mean Corpuscular HGB Conc 32 % (30-34); Mean Corpuscular Volume 84 fl (79-97); Monocytes # (Auto) 1.4 K/mm3 (0.0-0.8); Monocytes % (Auto) 10.1 % (0.0-7.3); Platelet Count 330 K/mm3 (140-440); Red Cell Distribution Width 14.2 % (13.2-15.2)
[2019-09-13 20:41] LABS: Alanine Aminotransferase 33 units/L (7-56); Albumin 4.2 g/dL (3.9-5); BUN/Creatinine Ratio 14; Bilirubin,Direct 0.3 mg/dL (0-0.2); Blood Urea Nitrogen 13 mg/dL (7-17); Calcium 9.5 mg/dL (8.4-10.2); Hemolysis Index 5
--- NOTE | 2019-09-13 21:22 | Cat Scan Report ---
CT ABDOMEN AND PELVIS WITHOUT CONTRAST INDICATION: Unspecified abdominal and pelvic pain for 4 days. COMPARISON: CT abdomen and pelvis without contrast from 09/09/2019. History of bilateral renal and lef t ureteral stones. TECHNIQUE: Axial, coronal and sagittal CT imaging of the abdomen and pelvis was performed without co ntrast. Lack of intravenous contrast limits evaluation of the vascular and solid organs. All CT sca ns at this location are performed using CT dose reduction for ALARA by means of automated exposure co ntrol. FINDINGS: LOWER CHEST: No significant abnormality. LIVER: No significant abnormality. BILIARY: No significant abnormality. PANCREAS: No significant abnormality. SPLEEN: No significant abnormality. ADRENALS: No significant abnormality. KIDNEYS AND URETERS: Nonobstructive bilateral renal stones are unchanged. The previously described le ft ureteral stone is no longer seen and has likely passed in the interval. No other ureteral stones a re identified. No additional significant abnormality. GI TRACT: No significant abnormality of the stomach, small bowel or colon. Unremarkable appendix. PERITONEUM: No free fluid. No free air. No fluid collection. LYMPH NODES: No significant adenopathy. VASCULATURE: No significant abnormality. URINARY BLADDER: No significant abnormality. REPRODUCTIVE ORGANS: No significant abnormality. ADDITIONAL FINDINGS: None. SKELETAL SYSTEM: No significant abnormality. IMPRESSION: 1. The left ureteral stone seen on the prior study is no longer visualized and has likely passed. 2. Similar nonobstructive bilateral renal stones. 3. No new acute abnormality of the abdomen or pelvis. Signer Name: Mushtaq Vazquez MD Signed: 09/13/2019 9:18 PM Workstation Name: [id number]
[2019-09-13] MEDS ORDERED: MORPHINE 2 MG/1 ML INJ ONE ×2 (21:25→22:45)
[2019-09-13] MEDS ORDERED: MORPHINE 2 MG/1 ML INJ IV ONE ×2 (21:26→22:45)
--- NOTE | 2019-09-13 21:51 | History and Physical Report ---
History of Present Illness History of present illness: 33-year-old woman with a history of hypertension, kidney stone comes in with emergency room for evaluation for persistent nausea vomiting since 09 September. She was seen in the emergency room on the for left flank pain, nausea vomiting and was diagnosed with kidney stone. She was discharged on outpatient medications, however she could not tolerate medications. She states she has 10- 12 episodes of nausea vomiting a day, started having hematemesis yesterday, multiple episodes but worsened. Patient will be admitted for evaluation of hematemesis Review Of Systems: Constitutional: no weight loss, fever, chills Ears, eyes, nose, mouth and throat: no nasal congestion, no nasal discharge, no sinus pressure, blurry vision, diplopia Neck: No neck pain or rigidity. Cardiovascular: No palpitations, chest pain Respiratory: No shortness of breath, cough Gastrointestinal: No hematochezia, abdominal pain Genitourinary : no dysuria, frequency Musculoskeletal: no muscle ache , joint pain Integumentary: no rash, no pruritis Neurological: no parathesias, focal weakness Endocrine: no cold or heat intolerance, no polyuria or polydipsia Hematologic/Lymphatic: no easy bruising, no easy bleeding, no gland swelling Allergic/Immunologic: no urticaria, no angioedema. PAST MEDICAL HISTORY: Hypertension, kidney stone PAST SURGICAL HISTORY: None SOCIAL HISTORY: Denies alcohol, drugs, smokes half a pack a day FAMILY HISTORY: Hypertension Medications and Allergies Allergies Allergy/AdvReac Type Severity Reaction Status Date / Time hydromorphone [From Dilaudid] Allergy Hives Verified 09/13/19 19:56 meperidine [From Demerol] Allergy Swelling Verified 11/02/17 12:13 tomato Allergy Swelling Verified 11/02/17 12:13 Home Medications Medication Instructions Recorded Confirmed Last Taken Type Ciprofloxacin HCl [Ciprofloxacin 500 mg PO Q12H 10 Days #20 tab 08/18/18 Unknown Rx TAB] Ondansetron [Zofran ODT TAB] 4 mg PO Q8HR PRN #14 tab.rapdis 09/09/19 Unknown Rx Tamsulosin [Flomax] 0.4 mg PO QDAY #14 cap 09/09/19 Unknown Rx oxyCODONE /ACETAMINOPHEN [Percocet 1 tab PO Q6HR PRN #10 tablet 09/09/19 Unknown Rx 5/325 mg] Active Meds: Active Medications Pantoprazole Sodium 80 mg/ (Sodium Chloride) 100 mls @ 10 mls/hr IV DIRECT JOHNY Exam - Physical Exam Narrative exam: Gen. appearance: Patient lying in bed, no apparent distress HEENT: Normocephalic, atraumatic, pupils equally round and reactive to light, extraocular movement intact, and no sclericterus,. No JVD or thyromegaly or nodule,neck supple, no carotid bruit ,mucous membranes moist, no exudate or erythema Heart: S1, S2, regular rate and rhythm Lungs: Clear bilaterally, breathing comfortable Abdomen: Positive bowel sounds, nontender, nondistended, no organomegaly Extremity: no edema, cyanosis, clubbing Skin: No rash, nodules, warm, dry Neuro: speech is fluent, cranial nerves II to XII intact, motor and sensory intact - Constitutional Vitals: Temp Pulse Resp BP Pulse Ox 99 F 77 18 142/95 99 09/13/19 19:50 09/13/19 19:50 09/13/19 19:50 09/13/19 19:50 09/13/19 19:50 Results - Labs CBC & Chem 7: 09/13/19 19:56 09/13/19 19:56 Labs: Abnormal lab results 09/13/19 09/13/19 Range/Units 19:56 19:56 WBC 13.8 H (4.5-11.0) K/mm3 RBC 5.10 H (3.65-5.03) M/mm3 MCH 27 L (28-32) pg [place] % (Auto) 10.1 H (0.0-7.3) % [place] # 1.4 H (0.0-0.8) K/mm3 Seg Neutrophils # 9.5 H (1.8-7.7) K/mm3 Potassium 3.2 L D (3.6-5.0) mmol/L Glucose 135 H (65-100) mg/dL Total Bilirubin 1.30 H (0.1-1.2) mg/dL Direct Bilirubin 0.3 H (0-0.2) mg/dL Total Protein 8.7 H (6.3-8.2) g/dL - Imaging and Cardiology CT scan - abdomen: report reviewed CT scan - pelvis: report reviewed Assessment and Plan Assessment Hematemesis most likely Giovanna-Cortez tear Continue Protonix drip: Start IV fluid GI was consulted to see the patient,. Hemoglobin is stable Start IV morphine Hypertension IV hydralazine as needed for blood pressure control Kidney stone Repeat CT shows that the stone has been passed Hypokalemia Replete potassium DVT prophylaxis
[2019-09-13] MEDS: PANTOPRAZOLE 80 MG in SODIUM CHLORIDE 0.9% 100 ML IV SCH (22:00)
[2019-09-13] MEDS ORDERED: ONDANSETRON 4 MG/2 ML INJ IV PRN (22:47)
[2019-09-13] MEDS ORDERED: METOCLOPRAMIDE 10 MG/2 ML INJ IV PRN (22:47)
[2019-09-13] MEDS ORDERED: hydrALAZINE 20 MG/1 ML INJ IV PRN (22:49)
[2019-09-13] MEDS: SODIUM CHLORIDE 0.45% 1000 ML 1,000 ML IV SCH (23:36)
[2019-09-14] MEDS: POTASSIUM CHLORIDE 10 MEQ 10 MEQ/100 ML BAG IV SCH ×6 (00:16→08:24)
[2019-09-14 01:01] LABS: Bilirubin,Urine SM (Negative); Blood,Urine NEG (Negative); Color,Urine Amber (Yellow); Mucus,Urine 3+ /HPF
[2019-09-14 01:20] LABS: Ictotest,Urine Positive (Negative)
[2019-09-14] MEDS: MORPHINE 2 MG/1 ML INJ IV PRN ×3 (03:09→14:32)
[2019-09-14 06:47] LABS: Basophils # (Auto) 0.1 K/mm3 (0.0-0.1); Basophils % (Auto) 0.4 % (0.0-1.8); Eosinophils # (Auto) 0.1 K/mm3 (0.0-0.4); Hematocrit 37.7 % (30.3-42.9); Lymphocytes # (Auto) 3.3 K/mm3 (1.2-5.4); Lymphocytes % (Auto) 27.5 % (13.4-35.0); Mean Corpuscular HGB Conc 32 % (30-34); Mean Corpuscular Volume 84 fl (79-97); Monocytes # (Auto) 1.2 K/mm3 (0.0-0.8); Monocytes % (Auto) 10.2 % (0.0-7.3); Platelet Count 281 K/mm3 (140-440); Red Blood Count 4.47 M/mm3 (3.65-5.03); Red Cell Distribution Width 14.2 % (13.2-15.2)
[2019-09-14 07:05] LABS: BUN/Creatinine Ratio 16; Blood Urea Nitrogen 14 mg/dL (7-17); Calcium 8.9 mg/dL (8.4-10.2); Hemolysis Index 8
--- NOTE | 2019-09-14 10:04 | Gastroenterology Consultation ---
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 H/H WNL. This morning patient was resting in bed w/o acute distress. She reports multiple episodes of vomiting over the past few days with emesis initially being non-bloody, then became bloody (dark/bright red blood) x 2 episodes yesterday. She states she is feeling better this am with N/V now improved (no episodes of vomiting this am) and no further signs of bleeding. No melena or hematochezia. Takes Aleve at home for pain but has no hx of PUD or liver disease. Admits to continued mild left-sided abd/flank pain which is also improved from onset but denies CP, SOB, dysphagia, odynophagia, diarrhea, or constipation. No prior EGD. Requesting diet. Past History Past Medical History: other (see HPI) Past Surgical History: Other (kidney stone surgery) Social history: smoking. denies: alcohol abuse Family history: hypertension Medications and Allergies Allergies Allergy/AdvReac Type Severity Reaction Status Date / Time hydromorphone [From Dilaudid] Allergy Hives Verified 09/13/19 19:56 meperidine [From Demerol] Allergy Swelling Verified 11/02/17 12:13 tomato Allergy Swelling Verified 11/02/17 12:13 Home Medications Medication Instructions Recorded Confirmed Last Taken Type Ondansetron [Zofran ODT TAB] 4 mg PO Q8HR PRN #14 tab.rapdis 09/09/19 09/13/19 Unknown Rx Tamsulosin [Flomax] 0.4 mg PO QDAY #14 cap 09/09/19 09/13/19 Unknown Rx oxyCODONE /ACETAMINOPHEN [Percocet 1 tab PO Q6HR PRN #10 tablet 09/09/19 09/13/19 Unknown Rx 5/325 mg] Pantoprazole [Protonix TAB] 40 mg PO BID #60 tablet 09/14/19 Unknown Rx Active Meds: Active Medications Hydralazine HCl (Apresoline) 5 mg IV Q6H PRN PRN Reason: Hypertension Pantoprazole Sodium 80 mg/ (Sodium Chloride) 100 mls @ 10 mls/hr IV DIRECT JOHNY Last Admin: 09/13/19 22:00 Dose: 8 mg/hr, 10 mls/hr Documented by: Sodium Chloride (Nacl 0.45% 1000 Ml) 1,000 mls @ 75 mls/hr IV DIRECT JOHNY Last Admin: 09/13/19 23:36 Dose: 75 mls/hr Documented by: Metoclopramide HCl (Reglan) 10 mg IV Q6H PRN PRN Reason: Nausea And Vomiting Morphine Sulfate (Morphine) 2 mg IV Q4H PRN PRN Reason: Pain, Moderate (4-6) Last Admin: 09/14/19 08:15 Dose: 2 mg Documented by: Ondansetron HCl (Zofran) 4 mg IV Q4H PRN PRN Reason: Nausea And Vomiting Last Admin: 09/14/19 03:10 Dose: 4 mg Documented by: Sodium Chloride (Sodium Chloride Flush Syringe 10 Ml) 10 ml IV BID JOHNY Sodium Chloride (Sodium Chloride Flush Syringe 10 Ml) 10 ml IV PRN PRN PRN Reason: LINE FLUSH medications reviewed/updated as required Review of Systems - Review of Systems All systems: negative Gastrointestinal: abdominal pain (left sided/flank), nausea, vomiting, hematemesis Exam - Constitutional Vital Signs: Temp Pulse Resp BP Pulse Ox 98.1 F 85 20 113/79 95 09/14/19 05:24 09/14/19 05:24 09/14/19 08:15 09/14/19 05:24 09/14/19 08:16 General appearance: no acute distress - EENT Eyes: PERRL, EOM intact ENT: hearing intact - Respiratory Respiratory effort: normal Respiratory: bilateral: diminished - Cardiovascular Rhythm: regular - Gastrointestinal General gastrointestinal: Present: soft, tender (slight), non-distended, normal bowel sounds - Integumentary Integumentary: Present: warm, dry - Neurologic Neurological: alert and oriented x3 - Labs CBC & Chem 7: 0227/20 05:31 09/14/19 05:31 Lab Results: Laboratory Results - last 24 hr 09/13/19 09/13/19 09/13/19 19:56 19:56 19:56 WBC 13.8 H RBC 5.10 H Hgb 13.5 Hct 42.8 MCV 84 MCH 27 L MCHC 32 RDW 14.2 Plt Count 330 Lymph % (Auto) 20.2 [place] % (Auto) 10.1 H Eos % (Auto) 0.5 Baso % (Auto) 0.3 Lymph # 2.8 [place] # 1.4 H Eos # 0.1 Baso # 0.0 Seg Neutrophils % 68.9 Seg Neutrophils # 9.5 H Sodium 142 Potassium 3.2 L D Chloride 99.9 Carbon Dioxide 23 Anion Gap 22 BUN 13 Creatinine 0.9 Estimated GFR > 60 BUN/Creatinine Ratio 14 Glucose 135 H Calcium 9.5 Total Bilirubin 1.30 H Direct Bilirubin 0.3 H Indirect Bilirubin 1.0 AST 40 ALT 33 Alkaline Phosphatase 83 Total Protein 8.7 H Albumin 4.2 Albumin/Globulin Ratio 0.9 HCG, Qual Negative Urine Color Urine Turbidity Urine pH Ur Specific [place] Urine Protein Urine Glucose (UA) Urine Ketones Urine Blood Urine Nitrite Urine Bilirubin Urine Ictotest Urine Urobilinogen Ur Leukocyte Esterase Urine WBC (Auto) Urine RBC (Auto) U Epithel Cells (Auto) Urine Mucus 09/14/19 09/14/19 09/14/19 00:30 05:31 05:31 WBC 12.0 H RBC 4.47 Hgb 12.0 Hct 37.7 MCV 84 MCH 27 L MCHC 32 RDW 14.2 Plt Count 281 Lymph % (Auto) 27.5 [place] % (Auto) 10.2 H Eos % (Auto) 1.0 Baso % (Auto) 0.4 Lymph # 3.3 [place] # 1.2 H Eos # 0.1 Baso # 0.1 Seg Neutrophils % 60.9 Seg Neutrophils # 7.3 Sodium 145 Potassium 3.4 L Chloride 104.4 Carbon Dioxide 24 Anion Gap 20 BUN 14 Creatinine 0.9 Estimated GFR > 60 BUN/Creatinine Ratio 16 Glucose 99 Calcium 8.9 Total Bilirubin Direct Bilirubin Indirect Bilirubin AST ALT Alkaline Phosphatase Total Protein Albumin Albumin/Globulin Ratio HCG, Qual Urine Color [place] Urine Turbidity Slightly-cloudy Urine pH 5.0 Ur Specific [place] 1.033 H Urine Protein 100 mg/dl Urine Glucose (UA) 50 Urine Ketones 20 Urine Blood Neg Urine Nitrite Neg Urine Bilirubin Sm Urine Ictotest Positive Urine Urobilinogen 4.0 Ur Leukocyte Esterase Neg Urine WBC (Auto) 14.0 H Urine RBC (Auto) 11.0 U Epithel Cells (Auto) 3.0 Urine Mucus 3+ Assessment and Plan 1.hematemesis -afebrile -WBC 12-trending down -plt and LFTs WNL -abd CT w/o acute GI process (kidney stones) -H/H WNL-stable; monitor and transfuse as needed -patient reports multiple episodes of vomiting over the past few days with emesis initially being non-bloody, then became bloody yesterday x 2 episodes with dark/bright red blood. No melena, hematochezia, or active signs of bleeding overnight or this am. -HD stable -etiology-likely M-W tear given history, vs esophagitis vs other -no plan for scope at this time, consider based on progress or if overt bleeding develops -continue Protonix (okay to transition from drip to BID) -avoid NSAIDs -start on trial of clears-advance as tolerated (N/V now improved; likely 2/2 kidney stones +/-medications) -continue supportive care -Once tolerating PO, if no further signs of bleeding and H/H remains stable, okay to d/c home on PPI BID with f/u in clinic in ~2 weeks <SAJAN KINSEY - Last Filed: 09/14/19 19:06> Medications and Allergies Active Meds: Active Medications Hydralazine HCl (Apresoline) 5 mg IV Q6H PRN PRN Reason: Hypertension Sodium Chloride (Nacl 0.45% 1000 Ml) 1,000 mls @ 75 mls/hr IV DIRECT JOHNY Last Admin: 09/14/19 13:05 Dose: 75 mls/hr Documented by: Metoclopramide HCl (Reglan) 10 mg IV Q6H PRN PRN Reason: Nausea And Vomiting Morphine Sulfate (Morphine) 2 mg IV Q4H PRN PRN Reason: Pain, Moderate (4-6) Last Admin: 09/14/19 14:32 Dose: 2 mg Documented by: Ondansetron HCl (Zofran) 4 mg IV Q4H PRN PRN Reason: Nausea And Vomiting Last Admin: 09/14/19 03:10 Dose: 4 mg Documented by: Pantoprazole Sodium (Protonix) 40 mg PO BID JOHNY Sodium Chloride (Sodium Chloride Flush Syringe 10 Ml) 10 ml IV BID JOHNY Last Admin: 09/14/19 10:40 Dose: 10 ml Documented by: Sodium Chloride (Sodium Chloride Flush Syringe 10 Ml) 10 ml IV PRN PRN PRN Reason: LINE FLUSH Exam - Constitutional Vital Signs: Temp Pulse Resp BP Pulse Ox 99.0 F 92 H 22 148/87 96 09/14/19 16:54 09/14/19 16:54 09/14/19 16:54 09/14/19 16:54 09/14/19 16:54 - Labs CBC & Chem 7: 09/14/19 05:31 09/14/19 05:31 Lab Results: Laboratory Results - last 24 hr 09/13/19 09/13/19 09/13/19 19:56 19:56 19:56 WBC 13.8 H RBC 5.10 H Hgb 13.5 Hct 42.8 MCV 84 MCH 27 L MCHC 32 RDW 14.2 Plt Count 330 Lymph % (Auto) 20.2 [place] % (Auto) 10.1 H Eos % (Auto) 0.5 Baso % (Auto) 0.3 Lymph # 2.8 [place] # 1.4 H Eos # 0.1 Baso # 0.0 Seg Neutrophils % 68.9 Seg Neutrophils # 9.5 H Sodium 142 Potassium 3.2 L D Chloride 99.9 Carbon Dioxide 23 Anion Gap 22 BUN 13 Creatinine 0.9 Estimated GFR > 60 BUN/Creatinine Ratio 14 Glucose 135 H Calcium 9.5 Total Bilirubin 1.30 H Direct Bilirubin 0.3 H Indirect Bilirubin 1.0 AST 40 ALT 33 Alkaline Phosphatase 83 Total Protein 8.7 H Albumin 4.2 Albumin/Globulin Ratio 0.9 HCG, Qual Negative Urine Color Urine Turbidity Urine pH Ur Specific [place] Urine Protein Urine Glucose (UA) Urine Ketones Urine Blood Urine Nitrite Urine Bilirubin Urine Ictotest Urine Urobilinogen Ur Leukocyte Esterase Urine WBC (Auto) Urine RBC (Auto) U Epithel Cells (Auto) Urine Mucus 09/14/19 09/14/19 09/14/19 00:30 05:31 05:31 WBC 12.0 H RBC 4.47 Hgb 12.0 Hct 37.7 MCV 84 MCH 27 L MCHC 32 RDW 14.2 Plt Count 281 Lymph % (Auto) 27.5 [place] % (Auto) 10.2 H Eos % (Auto) 1.0 Baso % (Auto) 0.4 Lymph # 3.3 [place] # 1.2 H Eos # 0.1 Baso # 0.1 Seg Neutrophils % 60.9 Seg Neutrophils # 7.3 Sodium 145 Potassium 3.4 L Chloride 104.4 Carbon Dioxide 24 Anion Gap 20 BUN 14 Creatinine 0.9 Estimated GFR > 60 BUN/Creatinine Ratio 16 Glucose 99 Calcium 8.9 Total Bilirubin Direct Bilirubin Indirect Bilirubin AST ALT Alkaline Phosphatase Total Protein Albumin Albumin/Globulin Ratio HCG, Qual Urine Color Emmy Urine Turbidity Slightly-cloudy Urine pH 5.0 Ur Specific [place] 1.033 H Urine Protein 100 mg/dl Urine Glucose (UA) 50 Urine Ketones 20 Urine Blood Neg Urine Nitrite Neg Urine Bilirubin Sm Urine Ictotest Positive Urine Urobilinogen 4.0 Ur Leukocyte Esterase Neg Urine WBC (Auto) 14.0 H Urine RBC (Auto) 11.0 U Epithel Cells (Auto) 3.0 Urine Mucus 3+ Assessment and Plan Patient seen and examined. I have reviewed the advanced practitioner's evaluation, assessment, and plan, and agree with them. I note the following additions: no drop in hgb, most consistent with retching/vomiting related such as Giovanna- Cortez tear or severe esophagitis. Given stable hemoglobin no need for emergent EGD if patient continues to improve may be discharged with outpatient follow-up and PPI Sajan Kinsey M.D. - Patient Problems (1) Abdominal pain Current Visit: Yes Status: Acute Qualifiers: Abdominal location: generalized Qualified Code(s): R10.84 - Generalized abdominal pain (2) Hematemesis Current Visit: Yes Status: Acute Qualifiers: Nausea presence: with nausea Qualified Code(s): K92.0 - Hematemesis
[2019-09-14] MEDS: PANTOPRAZOLE 80 MG in SODIUM CHLORIDE 0.9% 100 ML IV SCH (10:40)
--- NOTE | 2019-09-14 11:18 | Progress Note ---
Assessment and Plan Assessment and plan: Hematemesis most likely Giovanna-Cortez tear Continue Protonix drip: Start IV fluid GI was consulted to see the patient,. Hemoglobin is stable Start IV morphine Hypertension IV hydralazine as needed for blood pressure control Kidney stone Repeat CT shows that the stone has been passed Hypokalemia Replete potassium DVT prophylaxis Hospitalist Physical - Constitutional Vitals: Temp Pulse Resp BP Pulse Ox 98.1 F 85 20 113/79 95 09/14/19 05:24 09/14/19 05:24 09/14/19 08:15 09/14/19 05:24 09/14/19 08:16 Results - Labs CBC & Chem 7: 09/14/19 05:31 09/14/19 05:31 Labs: Laboratory Last Values WBC 12.0 K/mm3 (4.5-11.0) H 09/14/19 05:31 RBC 4.47 M/mm3 (3.65-5.03) 09/14/19 05:31 Hgb 12.0 gm/dl (10.1-14.3) 09/14/19 05:31 Hct 37.7 % (30.3-42.9) 09/14/19 05:31 MCV 84 fl (79-97) 09/14/19 05:31 MCH 27 pg (28-32) L 09/14/19 05:31 MCHC 32 % (30-34) 09/14/19 05:31 RDW 14.2 % (13.2-15.2) 09/14/19 05:31 Plt Count 281 K/mm3 (140-440) 09/14/19 05:31 Lymph % (Auto) 27.5 % (13.4-35.0) 09/14/19 05:31 [place] % (Auto) 10.2 % (0.0-7.3) H 09/14/19 05:31 Eos % (Auto) 1.0 % (0.0-4.3) 09/14/19 05:31 Baso % (Auto) 0.4 % (0.0-1.8) 09/14/19 05:31 Lymph # 3.3 K/mm3 (1.2-5.4) 09/14/19 05:31 [place] # 1.2 K/mm3 (0.0-0.8) H 09/14/19 05:31 Eos # 0.1 K/mm3 (0.0-0.4) 09/14/19 05:31 Baso # 0.1 K/mm3 (0.0-0.1) 09/14/19 05:31 Seg Neutrophils % 60.9 % (40.0-70.0) 09/14/19 05:31 Seg Neutrophils # 7.3 K/mm3 (1.8-7.7) 09/14/19 05:31 Sodium 145 mmol/L (137-145) 09/14/19 05:31 Potassium 3.4 mmol/L (3.6-5.0) L 09/14/19 05:31 Chloride 104.4 mmol/L (98-107) 09/14/19 05:31 Carbon Dioxide 24 mmol/L (22-30) 09/14/19 05:31 Anion Gap 20 mmol/L 09/14/19 05:31 BUN 14 mg/dL (7-17) 09/14/19 05:31 Creatinine 0.9 mg/dL (0.7-1.2) 09/14/19 05:31 Estimated GFR > 60 ml/min 09/14/19 05:31 BUN/Creatinine Ratio 16 % 09/14/19 05:31 Glucose 99 mg/dL (65-100) 09/14/19 05:31 Calcium 8.9 mg/dL (8.4-10.2) 09/14/19 05:31 Total Bilirubin 1.30 mg/dL (0.1-1.2) H 09/13/19 19:56 Direct Bilirubin 0.3 mg/dL (0-0.2) H 09/13/19 19:56 Indirect Bilirubin 1.0 mg/dL 09/13/19 19:56 AST 40 units/L (5-40) 09/13/19 19:56 ALT 33 units/L (7-56) 09/13/19 19:56 Alkaline Phosphatase 83 units/L (35-129) 09/13/19 19:56 Total Protein 8.7 g/dL (6.3-8.2) H 09/13/19 19:56 Albumin 4.2 g/dL (3.9-5) 09/13/19 19:56 Albumin/Globulin Ratio 0.9 % 09/13/19 19:56 HCG, Qual Negative (Negative) 09/13/19 19:56 Urine Color Emm[place] (Yellow) 09/14/19 00:30 Urine Turbidity Slightly-cloudy (Clear) 09/14/19 00:30 Urine pH 5.0 (5.0-7.0) 09/14/19 00:30 Ur Specific [place] 1.033 (1.003-1.030) H 09/14/19 00:30 Urine Protein 100 mg/dl mg/dL (Negative) 09/14/19 00:30 Urine Glucose (UA) 50 mg/dL (Negative) 09/14/19 00:30 Urine Ketones 20 mg/dL (Negative) 09/14/19 00:30 Urine Blood Neg (Negative) 09/14/19 00:30 Urine Nitrite Neg (Negative) 09/14/19 00:30 Urine Bilirubin Sm (Negative) 09/14/19 00:30 Urine Ictotest Positive (Negative) 09/14/19 00:30 Urine Urobilinogen 4.0 mg/dL (<2.0) 09/14/19 00:30 Ur Leukocyte Esterase Neg (Negative) 09/14/19 00:30 Urine WBC (Auto) 14.0 /HPF (0.0-6.0) H 09/14/19 00:30 Urine RBC (Auto) 11.0 /HPF (0.0-6.0) 09/14/19 00:30 U Epithel Cells (Auto) 3.0 /HPF (0-13.0) 09/14/19 00:30 Urine Mucus 3+ /HPF 09/14/19 00:30 Active Medications - Current Medications Current Medications: Generic Name Dose Route Start Last Admin Trade Name Freq PRN Reason Stop Dose Admin Hydralazine HCl 5 mg 09/13/19 22:49 Apresoline IV Q6H PRN Hypertension Pantoprazole Sodium 80 mg/ 100 mls @ 10 mls/hr 09/13/19 22:00 09/14/19 10:40 Sodium Chloride IV 8 mg/hr DIRECT JOHNY 10 mls/hr Administration 8 MG/HR Sodium Chloride 1,000 mls @ 75 mls/hr 09/13/19 23:00 09/13/19 23:36 Nacl 0.45% 1000 Ml IV 75 mls/hr DIRECT JOHNY Administration Metoclopramide HCl 10 mg 09/13/19 22:47 Reglan IV Q6H PRN Nausea And Vomiting Morphine Sulfate 2 mg 09/13/19 22:47 09/14/19 08:15 Morphine IV 2 mg Q4H PRN Administration Pain, Moderate (4-6) Ondansetron HCl 4 mg 09/13/19 22:47 09/14/19 03:10 Zofran IV 4 mg Q4H PRN Administration Nausea And Vomiting Sodium Chloride 10 ml 09/14/19 10:00 09/14/19 10:40 Sodium Chloride Flush Syringe 10 Ml IV 10 ml BID JOHNY Administration Sodium Chloride 10 ml 09/13/19 22:47 Sodium Chloride Flush Syringe 10 Ml IV PRN PRN LINE FLUSH
[2019-09-14] MEDS ORDERED: POTASSIUM CHLORIDE ER 10 MEQ TAB PO ONE (11:21)
[2019-09-14] MEDS ORDERED: FLU VACC QUAD 2019-20 (3 YR UP)/PF 60 MCG/0.5 ML SYRINGE IM ONE (12:00)
[2019-09-14] MEDS: SODIUM CHLORIDE 0.45% 1000 ML 1,000 ML IV SCH ×2 (12:54→13:05)
--- NOTE | 2019-09-14 15:59 | Discharge Summary ---
Providers - Providers Date of Admission: 09/13/19 21:50 Date of discharge: 09/14/19 Attending physician: NANNETTE FLORES 09/13/19 21:37 Consult to Physician [CONS] Routine Comment: Dr. Brito spoke with Dr. Lin @ [id number] Consulting Provider: BRANDEN LIN Physician Instructions: Reason For Exam: n/v, vomiting blood, Primary care physician: [facility] LE[facility]ER Hospitalization Condition: Fair Hospital course: 33-year-old woman with a history of hypertension, kidney stone comes in with emergency room for evaluation for persistent nausea vomiting since 09 September. She was seen in the emergency room on the for left flank pain, nausea vomiting and was diagnosed with kidney stone. She was discharged on outpatient medications, however she could not tolerate medications. She states she has 10- 12 episodes of nausea vomiting a day, started having hematemesis yesterday, multiple episodes but worsened. Patient will be admitted for evaluation of hematemesis GI has evaluated the patient, no new episodes of bleeding, hemodynamically stable Advised clear liquids which patient tolerated, advance diet as tolerated Cleared for discharge Patient is hemodynamically and clinically stable Discharge diagnosis; Hematemesis most likely Giovanna-Cortez tear Continue Protonix drip: Start IV fluid GI was consulted to see the patient,. Hemoglobin is stable Start IV morphine Hypertension IV hydralazine as needed for blood pressure control Kidney stone Repeat CT shows that the stone has been passed Hypokalemia Replete potassium Obesity; BMI 38 Advised weight reduction when medically stable Ongoing tobacco use; Smoking cessation counseling, advised nicotine patch Patient symptoms significantly, no new episodes of hematemesis H&H stable, vital signs within normal limits Cleared by GI for discharge on Protonix and follow-up in 2 weeks Stable at discharge Disposition: MD-01 TO HOME OR SELFCARE Time spent for discharge: 33min Core Measure Documentation - Palliative Care Palliative Care/ Comfort Measures: Not Applicable - Core Measures Any of the following diagnoses?: none Exam - Constitutional Vitals: Temp Pulse Resp BP Pulse Ox 99.6 F 65 20 129/82 96 09/14/19 11:18 09/14/19 11:18 09/14/19 14:32 09/14/19 11:18 09/14/19 11:18 General appearance: Present: no acute distress, well-nourished - EENT Eyes: Present: PERRL, EOM intact - Neck Neck: Present: supple, normal ROM - Respiratory Respiratory effort: normal Respiratory: bilateral: diminished, negative: rales, rhonchi, wheezing - Cardiovascular Rhythm: regular Heart Sounds: Present: S1 & S2 - Extremities Extremities: no ischemia, No edema - Abdominal General gastrointestinal: Present: soft, non-tender, non-distended, normal bowel sounds - Integumentary Integumentary: Present: clear, warm - Musculoskeletal Musculoskeletal: strength equal bilaterally - Psychiatric Psychiatric: appropriate mood/affect, cooperative - Neurologic Neurologic: CNII-XII intact, moves all extremities Plan Special Instructions: smoking cessation Additional Instructions: Full liquids advance diet as tolerated. Avoid NSAID group of pain medications. Smoking cessation. If you notice new episodes of GI bleeding contact MD or go to emergency room. Advised exercise as tolerated and weight reduction when you are medically stable Follow up with: PRIMARY CARE, [Primary Care Provider] - 3-5 Days SAJAN KINSEY MD [Staff Physician] - 14 Days Prescriptions: Pantoprazole [Protonix TAB] 40 mg PO BID #60 tablet
[2019-09-14 18:35] VITALS: BP 148/87
[2019-09-14] MEDS ORDERED: PANTOPRAZOLE 40 MG TAB PO SCH (22:00)
== END 2019-09-14 18:00 | disposition home or self-care (01) ==
LOC: ED 19:30 → 3A 21:50
PROVIDERS: ADMIT Internal Medicine; ATTEND Internal Medicine
DX: K92.0 Hematemesis (principal); I10 Essential (primary) hypertension; R07.89 Other chest pain; N13.2 Hydronephrosis with renal and ureteral calculous obstruction; E87.6 Hypokalemia; F17.200 Nicotine dependence, unspecified, uncomplicated; J45.909 Unspecified asthma, uncomplicated; Z98.890 Other specified postprocedural states
CPT/HCPCS: 36415; 74176; 80048; 80076; 81001; 84703; 85025; 87086; 90686; 96361; 96365; 96366; 96368; 96375; 96376; 99291; C9113; G0378; J1885; J2270; J2405; J3480; J7030

== ENCOUNTER 2019-11-12 20:50 | Emergency (ER) | payer MEDICAID ==
[2019-11-12 22:19] LABS: Basophils % (Auto) 0.2 % (0.0-1.8); Hematocrit 36.4 % (30.3-42.9); Hemoglobin 11.8 gm/dl (10.1-14.3); Lymphocytes # (Auto) 1.3 K/mm3 (1.2-5.4); Mean Corpuscular HGB Conc 33 % (30-34); Mean Corpuscular Volume 84 fl (79-97); Monocytes # (Auto) 0.8 K/mm3 (0.0-0.8); Monocytes % (Auto) 5.3 % (0.0-7.3); Platelet Count 342 K/mm3 (140-440); Red Blood Count 4.34 M/mm3 (3.65-5.03); Red Cell Distribution Width 14.8 % (13.2-15.2)
[2019-11-12] MEDS ORDERED: SODIUM CHLORIDE 0.9% 1000 ML 1,000 ML IV ONE (22:39)
[2019-11-12] MEDS ORDERED: KETOROLAC 30 MG/1 ML INJ IV ONE (22:39)
--- NOTE | 2019-11-12 22:48 | Emergency Department Report ---
ED Abdominal Pain HPI - General Chief Complaint: Abdominal Pain Stated Complaint: POSS KIDNEY STONES Time Seen by Provider: 11/12/19 22:14 Source: patient, EMS Mode of arrival: Wheelchair Limitations: No Limitations - History of Present Illness Initial Comments: 33-year-old female with history of kidney stone presents to ED with flank pain since yesterday. Patient reports associated nausea and vomiting, dysuria, hematuria. Patient states she is feeling pressure in her vagina also. Patient denies fever, chills. MD Complaint: flank pain -: days(s) (2) Location: R flank Radiation: other (vagina) Severity: moderate Quality: sharp Consistency: intermittent Improves With: nothing Worsens With: nothing Context: other (History of kidney stone) Associated Symptoms: nausea, vomiting, dysuria, hematuria. denies: fever, chills - Related Data Previous Rx's Medication Instructions Recorded Last Taken Type Ondansetron [Zofran ODT TAB] 4 mg PO Q8HR PRN #14 tab.rapdis 09/09/19 Unknown Rx Tamsulosin [Flomax] 0.4 mg PO QDAY #14 cap 09/09/19 Unknown Rx oxyCODONE /ACETAMINOPHEN [Percocet 1 tab PO Q6HR PRN #10 tablet 09/09/19 Unknown Rx 5/325 mg] Pantoprazole [Protonix TAB] 40 mg PO BID #60 tablet 09/14/19 Unknown Rx Ciprofloxacin HCl [Ciprofloxacin 500 mg PO Q12HR 7 Days #14 tab 11/13/19 Unknown Rx TAB] HYDROcodone/APAP 5-325 [[place] 1 each PO Q6HR PRN #10 tablet 11/13/19 Unknown Rx 5/325] Naproxen [Naprosyn] 500 mg PO BID #20 tablet 11/13/19 Unknown Rx Tamsulosin [Flomax] 0.4 mg PO QDAY #5 cap 11/13/19 Unknown Rx Allergies Allergy/AdvReac Type Severity Reaction Status Date / Time hydromorphone [From Dilaudid] Allergy Hives Verified 09/13/19 19:56 meperidine [From Demerol] Allergy Swelling Verified 11/02/17 12:13 tomato Allergy Swelling Verified 11/02/17 12:13 ED Review of Systems ROS: Stated complaint: POSS KIDNEY STONES Other details as noted in HPI Comment: All other systems reviewed and negative Constitutional: denies: chills, fever Gastrointestinal: abdominal pain, nausea, vomiting Genitourinary: dysuria, hematuria Musculoskeletal: back pain ED Past Medical Hx - Past Medical History Previous Medical History?: Yes Hx Kidney Stones: Yes Hx Asthma: Yes 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 - Surgical History Past Surgical History?: Yes Additional Surgical History: kidney stone surgery - Social History Smoking Status: Current Every Day Smoker - Medications Home Medications: Home Medications Medication Instructions Recorded Confirmed Last Taken Type Ondansetron [Zofran ODT TAB] 4 mg PO Q8HR PRN #14 tab.rapdis 09/09/19 09/13/19 Unknown Rx Tamsulosin [Flomax] 0.4 mg PO QDAY #14 cap 09/09/19 09/13/19 Unknown Rx oxyCODONE /ACETAMINOPHEN [Percocet 1 tab PO Q6HR PRN #10 tablet 09/09/19 09/13/19 Unknown Rx 5/325 mg] Pantoprazole [Protonix TAB] 40 mg PO BID #60 tablet 09/14/19 Unknown Rx Ciprofloxacin HCl [Ciprofloxacin 500 mg PO Q12HR 7 Days #14 tab 11/13/19 Unknown Rx TAB] HYDROcodone/APAP 5-325 [[place] 1 each PO Q6HR PRN #10 tablet 11/13/19 Unknown Rx 5/325] Naproxen [Naprosyn] 500 mg PO BID #20 tablet 11/13/19 Unknown Rx Tamsulosin [Flomax] 0.4 mg PO QDAY #5 cap 11/13/19 Unknown Rx ED Physical Exam - General Limitations: No Limitations General appearance: alert, in no apparent distress - Head Head exam: Present: atraumatic, normocephalic - Eye Eye exam: Present: normal appearance - ENT ENT exam: Present: mucous membranes moist - Neck Neck exam: Present: normal inspection - Respiratory Respiratory exam: Present: normal lung sounds bilaterally. Absent: respiratory distress - Cardiovascular Cardiovascular Exam: Present: normal rhythm, tachycardia - GI/Abdominal GI/Abdominal exam: Present: soft, tenderness (RLQ, suprapubic tenderness). A bsent: distended - Extremities Exam Extremities exam: Present: normal inspection - Back Exam Back exam: Present: CVA tenderness (R) - Neurological Exam Neurological exam: Present: alert, oriented X3 - Psychiatric Psychiatric exam: Present: normal affect, normal mood - Skin Skin exam: Present: warm, dry, intact, normal color ED Course Vital Signs 11/12/19 11/12/19 11/12/19 21:39 22:27 22:41 Temperature 98.8 F Pulse Rate 108 H Respiratory 18 20 11 L Rate Blood Pressure 121/72 115/77 O2 Sat by Pulse 100 100 Oximetry 11/12/19 11/12/19 11/12/19 22:45 23:01 23:15 Temperature Pulse Rate 84 81 91 H Respiratory 11 L 20 22 Rate Blood Pressure 110/74 122/74 115/77 O2 Sat by Pulse 99 100 98 Oximetry 11/12/19 11/12/19 11/12/19 23:30 23:45 23:47 Temperature Pulse Rate 101 H 90 90 Respiratory 17 22 19 Rate Blood Pressure 116/83 122/74 122/74 O2 Sat by Pulse 100 100 99 Oximetry 11/13/19 11/13/19 00:09 00:15 Temperature Pulse Rate 99 H 89 Respiratory 17 15 Rate Blood Pressure 122/74 122/74 O2 Sat by Pulse 100 99 Oximetry ED Medical Decision Making - Lab Data Result diagrams: 11/12/19 21:55 11/12/19 21:55 - Radiology Data Radiology results: report reviewed, image reviewed - Medical Decision Making - afebrile - renal function normal - no urine bacteria present, but will place on abx since slight elevation in WBCs - 4 mm stone should pass w/o intervention - pt feeling much better at this time - will d/c home - outpt f/u given - Differential Diagnosis kidney stone, pyelonephritis, appendicitis Critical care attestation.: If time is entered above; I have spent that time in minutes in the direct care of this critically ill patient, excluding procedure time. ED Disposition Clinical Impression: Ureteral stone with hydronephrosis Disposition: -01 TO HOME OR SELFCARE Is pt being admited?: No Condition: Stable Instructions: Kidney Stones (ED), Renal Colic (ED) Prescriptions: Ciprofloxacin HCl [Ciprofloxacin TAB] 500 mg PO Q12HR 7 Days #14 tab Tamsulosin [Flomax] 0.4 mg PO QDAY #5 cap HYDROcodone/APAP 5-325 [[place] 5/325] 1 each PO Q6HR PRN #10 tablet PRN Reason: Pain Referrals: PRIMARY CARE, [Primary Care Provider] - 3-5 Days FRANSISCO QUEZADA MD [Staff Physician] - 3-5 Days Time of Disposition: 01:20
[2019-11-12 22:49] LABS: Bilirubin,Urine NEG (Negative); Blood,Urine MOD (Negative); Color,Urine Yellow (Yellow); Hyaline Casts,Urine 5 /LPF; Mucus,Urine 3+ /HPF; Urobilinogen,Urine < 2.0 mg/dL (<2.0)
[2019-11-12 23:07] LABS: Albumin 4.4 g/dL (3.9-5); BUN/Creatinine Ratio 19; Blood Urea Nitrogen 13 mg/dL (7-17); Calcium 9.7 mg/dL (8.4-10.2); Hemolysis Index 97
[2019-11-12 23:12] LABS: Alanine Aminotransferase 13 units/L (7-56)
[2019-11-12] MEDS ORDERED: MORPHINE 2 MG/1 ML INJ IV ONE (23:37)
[2019-11-12] MEDS ORDERED: MORPHINE 4 MG/1 ML INJ ONE (23:38)
--- NOTE | 2019-11-13 00:49 | Cat Scan Report ---
CT ABDOMEN AND PELVIS WITHOUT CONTRAST INDICATION: R flank pain CONTRAST: Without IV COMPARISON: 09/13/[address] scans at this location are performed using CT dose reduction for ALARA by means of automated e xposure control. NOTE: Resolution is decreased and artifact is introduced by the patient's size. FINDINGS: Lung bases are clear. No pneumoperitoneum is seen. No significant abdominal wall herniation is noted. Mild fatty infiltration of the liver is seen. Liver is enlarged and has a length of 19.4 c m. No focal lesions are obvious. Spleen appears within normal limits. Small left adrenal nodule is un changed. I see no abnormalities of the gallbladder, bile ducts, pancreas, or right adrenal. Small her nias noted. No evidence of bowel obstruction is seen. Appendix appears within normal limits. No free fluid is noted. No lymphadenopathy is seen. Mild colonic diverticulosis is seen without evidence of d iverticulitis. Much of the colon is decompressed making evaluation difficult but I do not see obvious surrounding inflammation. Minimal left and mild right nephrolithiasis are again seen. No obstructive changes are seen on the le ft. On the right there is moderate pelvocaliectasis and moderate dilatation of the upper to mid urete r. In the right ureter at the pelvic brim level a calculus is now seen measuring 4 mm. More distally the ureter is of normal caliber. Urinary bladder is not well distended but shows no obvious abnormali ties. IMPRESSION: 1. Moderately obstructing right ureteral calculus at the pelvic brim level 2. Bilateral nephrolithiasis, more on the right 3. Stable appearance of left adrenal nodule Signer Name: Ok Jara MD Signed: 11/13/2019 12:44 AM Workstation Name: [email or web address]
[2019-11-13] MEDS ORDERED: HYDROcodone/ACETAMINOPHEN 5-325 MG TAB PO ONE (01:13)
[2019-11-13 01:25] VITALS: BP 147/78
== END 2019-11-13 01:36 | disposition home or self-care (01) ==
LOC: ED 20:50
DX: N13.2 Hydronephrosis with renal and ureteral calculous obstruction (principal); J45.909 Unspecified asthma, uncomplicated; F17.200 Nicotine dependence, unspecified, uncomplicated
CPT/HCPCS: 36415; 74176; 80053; 81001; 83690; 84703; 85025; 87086; 96361; 96374; 96375; 99284; J1885; J2270; J7030